=== PATIENT | male | born 1945 | race Caucasian/White ===

== ENCOUNTER 2017-08-20 10:29 | Emergency (ER) | payer MEDICARE, BC ==
[2017-08-20 12:11] LABS: ANION GAP 14.2; CHLORIDE,CL 94 mmol/L (101-111); SODIUM,NA 130 mmol/L (135-145)
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
[2017-08-20] MEDS ORDERED: Vancomycin 1.5 GM in Sodium Chloride 0.9% 500 ML IV ONE (12:35)
== END 2017-08-20 14:25 | disposition home or self-care (01) ==
LOC: DL.ED 10:29
DX: L03.311 Cellulitis of abdominal wall (principal); K21.9 Gastro-esophageal reflux disease without esophagitis; I10 Essential (primary) hypertension; Z79.899 Other long term (current) drug therapy
CPT/HCPCS: 36415; 80053; 83605; 85025; 87040; 96365; 96366; 99283; J3370; J7040